=== PATIENT | female | born 1965 ===

== ENCOUNTER 2018-05-22 14:01 | Outpatient (CLI) | payer OTHER ==
[~2018-05-22 14:01] MED LIST: SYNTHROID50 MCG
== END 2018-05-22 14:19 | disposition home or self-care (01) ==
LOC: SONOGRAMA 14:01
DX: E04.1 Nontoxic single thyroid nodule (principal)

== ENCOUNTER 2025-09-29 13:00 | Day surgery (SDC) | payer OTHER ==
[2025-09-21 14:27] VITALS: BP 123/75
[2025-09-21 15:13] LABS: URINE APPEARANCE Clear; URINE BILIRRUBIN Negative (NEGATIVE); URINE BLOOD Negative; URINE COLOR Dark Yellow; URINE GLUCOSE Negative (NEGATIVE); URINE LEUKOCYTE Small; URINE NITRATE Negative; URINE PROTEIN Trace (NEGATIVE); URINE UROBILINOGEN 0.2 E.U./dl
[2025-09-21 15:22] LABS: BASO % 0.5 % (0.1-1.2); EOS # 0.06 (0.04-0.54); EOS % 0.8 % (0.7-7.0); LYMPH # 1.93 (1.18-3.74); LYMPH % 24.4 % (19.3-53.1); MEAN PLATELET VOLUME 9.60 fl (9.4-12.4); MONO # 0.55 (0.24-0.82); MONO % 7.0 % (4.7-12.5); NEUT # 5.30 (1.56-6.13); NEUT % 67.0 % (34.0-71.1); RED CELL DISTRIBUTION WIDTH 12.7 % (11.6-14.4)
[2025-09-21 15:39] LABS: ALT/SGPT 27.0 U/L (12-78); AST/SGOT 16.0 U/L (15-37); BILIRUBIN TOTAL 0.53 mg/dL (0.3-1.2); BUN CREA RATIO 21.0 (7.0-25.0); CREATININE SERUM 0.8 mg/dL (0.55-1.02); GFR 72.68; GLOBULINA 3.6 G/DL (2.4-3.5); GLUCOSE FASTING 93.0 mg/dL (65-100); OSMOLALITY SERUM 286.0 MOSM/KG (275-295)
[2025-09-21 16:01] LABS: URINE BACTERIA 97.1 uL (0.0-1933); URINE EPITHELIAL CELLS 5.5 uL (0.0-38.8); URINE RBC 18.0 uL (0.0-20.8); URINE WBC 19.9 uL (0.0-23.2)
[2025-09-21 16:08] LABS: URINE CAST 1.02 uL (0.0-1.40); URINE KETONE 80 (NEGATIVE)
[2025-09-21 16:38] LABS: INR 1.14
[~2025-09-29] VITALS: Ht 167.6 cm; Wt 78.5 kg
[~2025-09-29 13:00] MED LIST changes: +ARMOUR THYROID30 M1 PO; +COZAAR50 MG PO; +CRESTOR40 MG PO; +ZETIA10 MG PO
[2025-09-29] MEDS ORDERED: POVIDONE-IODINE 118 ML BOTT TOP ONE (15:35)
[2025-09-29] MEDS ORDERED: PROMETHAZINE HCL 50 MG/ML AMPUL IM ONE (19:00)
== END 2025-09-29 23:10 | disposition left against medical advice (07) ==
LOC: CIR.AMB 13:00
PROVIDERS: ATTEND Student in an Organized Health Care Education/Training Program
DX: N95.0 Postmenopausal bleeding (principal); N84.0 Polyp of corpus uteri